=== PATIENT | female | born 1985 | race Caucasian/White ===

== ENCOUNTER 2020-08-26 19:36 | Emergency (ER) | payer OTHER, MEDICAID ==
[~2020-08-26] VITALS: Ht 160 cm; Wt 85.3 kg
[2020-08-26 20:04] VITALS: Ht 160 cm; Wt 85.3 kg
[2020-08-27 01:37] VITALS: BP 112/69
== END 2020-08-27 01:37 | disposition home or self-care (01) ==
LOC: ED 19:36
DX: S16.1XXA Strain of muscle, fascia and tendon at neck level, initial encounter (principal); M47.896 Other spondylosis, lumbar region; V49.9XXA Car occupant (driver) (passenger) injured in unspecified traffic accident, initial encounter; Y93.89 Activity, other specified; Y92.89 Other specified places as the place of occurrence of the external cause; Y99.8 Other external cause status
CPT/HCPCS: 72072; J1885